=== PATIENT | female | born 1990 | race Two or more races ===

== ENCOUNTER 2025-04-14 18:25 | Emergency (ER) | payer MEDICAID, SELFPAY ==
[2025-04-14 18:33] VITALS: BP 112/71; PULSE 122; RESP 23; TEMP 37.1; O2SAT 99; BMI 26.0
--- NOTE | 2025-04-14 18:51 | PD.EDDENTL ---
ED Dental RME/HPI General Chief complaint: Dental/Oral/Throat Stated complaint: SORE THROAT W/BODYACHES Time Seen by Provider: 04/14/25 18:52 Arrival date/time: 04/14/25 18:25 RME / HPI RME / HPI Narrative: This section includes all my notes and documentations, including HPI, PE, and ED course. Cj Warren MD HPI: 34yo female with no significant past medical history presents to the ED for complaints of headache, sore throat, and intermittent fevers since yesterday. No cough, runny nose, nausea, vomiting or any other associated symptoms. She is not on any daily medications. No other complaints reported. ROS: All negative except as documented in HPI. Physical Exam: General: Alert and oriented. In obvious pain. Eyes: Conjunctivae and lids clear. ENT: No nasal congestion. Enlarged red tonsils bilaterally with exudate. Tympanic membranes normal bilaterally. Neck: Supple. Heart: RRR. Lungs: No respiratory distress. Good air movement. No rhonchi, wheezing, rales. Abdomen: Soft and nontender. Skin: Warm and dry. Neuro: Alert and oriented X 3. May clinical diagnosis of tonsillitis. Treatment here included Tylenol with Codeine, Augmentin, Ibuprofen, and Predisolone. Started to feel better. Recommended outpatient management. Based on my best medical judgment, made decision no further evaluation or treatment indicated at this time. Patient understands and agrees to the discharge instructions customized and printed, see below. Discharge instructions from Dr. Warren: -- Augmentin to kill the germs causing the tonsillitis. -- Prednisone to decrease the swelling in the throat. -- Ibuprofen 800 mg every 6-8 hours today and tomorrow to decrease inflammation then as needed. -- Tylenol with codeine for severe pain. -- Increase oral fluid. Our body needs extra when we are sick. Maintain clear urine. If dark or yellow, increase oral fluid. -- See a private doctor on 04/16/2025 for recheck and further care. Ask for help until you are completely better. -- Seek immediate medical care with worsening or with any concerns. Cj Warren MD Related Data Previous Rx's ?Medication ?Instructions ?Recorded acetaminophen 300 mg-codeine 30 mg 2 tab PO Q8H PRN pain #20 tabs 04/14/25 tablet amoxicillin 875 mg-potassium 1 tab PO BID #20 tabs 04/14/25 clavulanate 125 mg tablet ibuprofen 800 mg tablet 800 mg PO Q8H PRN pain #30 tabs 04/14/25 prednisone 20 mg tablet 20 mg PO BID 3 days #6 tabs 04/14/25 Allergies Allergy/AdvReac Type Severity Reaction Status Date / Time No Known Allergies Allergy Verified 04/14/25 18:27 Review of Systems Review of Systems Systems Reviewed: All systems reviewed, normal except as documented ED Exam Narrative Physical exam: As noted in HPI. Course Quality Measures none Orders Category Date Time Status ACETAMINOPHEN w/COD 300-30 [Tylenol w/Cod #3] Med 04/14/25 18:52 Discontinued 2 tab PO X1 ONE Amox/Pot 250 mg/62.5 mg/5 ml [Augmentin 250 MG/62.5 MG/ Med 04/14/25 18:52 Discontinued 5 ML] 500 mg PO X1 ONE Ibuprofen Susp [Motrin Susp] Med 04/14/25 18:52 Discontinued 400 mg PO X1 ONE prednisoLONE 15 mg/5 ml UDC [Prelone Liqd] Med 04/14/25 18:52 Discontinued 60 mg PO X1 ONE Vital Signs Vital signs: Vital Signs Temperature 98.7 F 04/14/25 18:33 Pulse Rate 122 H 04/14/25 18:33 Respiratory Rate 23 H 04/14/25 18:33 Blood Pressure 112/71 04/14/25 18:33 Pulse Oximetry (%) 99 04/14/25 18:33 Oxygen Delivery Method Room Air 04/14/25 18:33 Dental / Oral MDM Narrative MDM Narrative:: Scribe Attestation: 04/14/25 Erin Dixon am scribing for and in the presence of Dr. Warren. Patient data External records reviewed:: [facility] previous records (Per chart review, patient has no previous ED visits or admissions to this facility.) Clinical information provided by:: patient Social determinants that could affect healthcare access:: none Patient has the following chronic illnesses:: none How is presenting disease/condition affected by chronic disease/condition?: no chronic disease Evaluation data The following diagnostics were reviewed and interpreted by me:: other (specify) (none) Lab and/or radiology exams considered but not ordered:: none Interpretation Summary: none Medications / Prescriptions Medications or Prescriptions considered but not ordered:: none Medication administrations:: Medication Administration History Discontinued Medications Acetaminophen/Codeine Phosphate (Acetaminophen W/Cod 300-30 Tablet) 2 tab PO X1 ONE Stop: 04/14/25 18:53 Amoxicillin/Clavulanate Potassium (Amoxicillin/Pot Clav Susp 250 Mg/5 Ml Udc) 500 mg PO X1 ONE Stop: 04/14/25 18:53 Ibuprofen (Ibuprofen Susp 100 Mg/5 Ml Udc) 400 mg PO X1 ONE Stop: 04/14/25 18:53 Prednisolone Sodium Phosphate (Prednisolone Liqd 15 Mg/5 Ml Udc) 60 mg PO X1 ONE Stop: 04/14/25 18:53 Tylenol with Codeine, Augmentin, Ibuprofen, and Predisolone Consultations Consultation(s) initiated? (list below): No Diagnosis Dental Differential Diagnosis: gingival abscess, dental caries, toothache, dental abscess, fracture of tooth, aphthous ulcer and other (Tonsillitis) Most likely diagnosis given after review of the tests above:: Tonsillitis Admission Indicated Admission indicated?: not indicated Explain why admission is indicated or not indicated:: With no condition needing emergent intervention, there was no indication for admission. Admission Request Was there a request for admission?: No Disposition Plan Disposition Plan: Discharge Discharge Attestation Discharge Attestation: The patient and all family members were given an opportunity to ask questions and understood the discharge instructions. Discharge instructions specifically effects, indications for sooner follow up or return to the emergency department, and the expected course of current diagnosis. Patient condition: Stable Discharge Plan Plan Patient Disposition: HOME (Self Care) Prescriptions/Referrals Prescriptions/Med Rec: New ibuprofen 800 mg tablet 800 mg PO Q8H PRN (Reason: pain) Qty: 30 0RF prednisone 20 mg tablet 20 mg PO BID 3 Days Qty: 6 0RF Taper: Prednisone Taper 20 mg DAILY for 2 Days and 0 Hour 10 mg DAILY for 2 Days and 0 Hour 5 mg DAILY for 7 Days and 0 Hour acetaminophen-codeine 300-30 mg tablet 2 tab PO Q8H MDD 6 PRN (Reason: pain) Qty: 20 0RF amoxicillin-pot clavulanate 875-125 mg tablet 1 tab PO BID Qty: 20 0RF Problem List Clinical Impression: Tonsillitis Patient/Caregiver Discharge Instructions Discharge Activity: activity as tolerated Education Materials: ED Tonsillitis (Child) Additional Instructions: Discharge instructions from Dr. Warren: -- Augmentin to kill the germs causing the tonsillitis.? -- Prednisone to decrease the swelling in the throat. -- Ibuprofen 800 mg every 6-8 hours today and tomorrow to decrease inflammation then as needed. -- Tylenol with codeine for severe pain. -- Increase oral fluid.? Our body needs extra when we are sick.? Maintain clear urine.? If dark or yellow, increase oral fluid.?? -- See a private doctor on 04/16/2025 for recheck and further care. Ask for help until you are completely better. -- Seek immediate medical care with worsening or with any concerns. Print Language: Chinese Stand Alone Forms: Tamara Award Info., Patient Portal Info Letter
[2025-04-14] MEDS: prednisoLONE LIQD 15 MG/5 ML UDC 60 MG PO (19:08)
[2025-04-14] MEDS: ACETAMINOPHEN w/COD 300-30 TABLET 2 TAB PO (19:09)
[2025-04-14] MEDS: IBUPROFEN SUSP 100 MG/5 ML UDC 400 MG PO (19:09)
[2025-04-14] MEDS: AMOXICILLIN/POT CLAV SUSP 250 MG/5 ML UDC 500 MG PO (19:10)
== END 2025-04-15 01:07 | disposition home or self-care (01) ==
LOC: SERX 19:28
PROVIDERS: Emergency Provider Emergency Medicine
DX: J03.90 Acute tonsillitis, unspecified (principal)
CPT/HCPCS: 99282; J7510; A9270

== ENCOUNTER 2025-08-05 08:40 | Emergency (ER) | payer MEDICAID, SELFPAY ==
[2025-08-05 08:40] VITALS: BMI 33.0
--- NOTE | 2025-08-05 08:59 | XR_ITS ---
Examination: Pelvic ultrasound, transabdominal, complete Technique: Transabdominal ultrasound of the pelvis performed using grayscale imaging Date and time of exam: July 29 60120, 0919 hours INDICATIONS: Pelvic pain beginning 4 days ago FINDINGS: Uterus 7.4 cm intrauterine device satisfactory position No uterine mass Right ovary 3.3 cm arterial flow. Left ovary 3.6 cm arterial flow No fluid in the cul-de-sac IMPRESSION: No uterine mass or intrauterine gestation
--- NOTE | 2025-08-05 09:00 | PD.EDRME ---
Rapid Medical Screening Exam E Arrival date/time: 08/05/25 08:40 34-year-old female with no known medical history presents to the emergency room with a chief complaint of vaginal bleeding and pelvic pain x 2 days. Patient states she is currently on control. I have greeted and performed a focused initial assessment of this patient. A comprehensive ED assessment and evaluation of the patient, analysis of all test results, and completion of the medical decision making process will be conducted by additional ED providers. Chief Complaint: Abdominal Pain Vital signs reviewed by provider: Yes Exam: Soft nontender abdomen. Pelvic pain with palpation Clear bilateral lung sounds Clinical Impression: Ectopic /ovarian cyst/vaginal bleeding
[2025-08-05 09:09] VITALS: BP 112/68; PULSE 78; RESP 18; TEMP 36.9; O2SAT 99
[2025-08-05 09:59] LABS: Basophils # (Auto) 0.1 Thou/mm3 (0.0-0.2); Basophils % (Auto) 1 % (0-2.5); Eosinophils # (Auto) 0.1 Thou/mm3 (0.0-0.5); Eosinophils % (Auto) 1 % (0-10); Hematocrit 34.4 % (36.0-46.0); Hemoglobin 11.8 g/dL (12.0-16.0); Immature Granulocytes Auto 0.01 Thou/mm3 (0.00-0.00); Lymphocytes # (Auto) 2.1 Thou/mm3 (1.0-4.8); Lymphocytes % (Auto) 29 % (10-50); Mean Corpuscular HGB Conc 34.3 g/dl (31.0-37.0); Mean Corpuscular Hemoglobin 31.5 pg (25.0-35.0); Mean Corpuscular Volume 92 fL (80-100); Monocytes # (Auto) 0.6 Thou/mm3 (0.0-0.8); Monocytes % (Auto) 8 % (0-12); Neutrophils # (Auto) 4.3 Thou/mm3 (1.8-7.7); Neutrophils % (Auto) 60 % (37-80); Nucleated Red Blood Cell # 0.00 Thou/mm3 (0.00-0.00); Nucleated Red Blood Cell % 0 /100 WBC (0); Platelet Count 369 Thou/mm3 (140-440); RDW Standard Deviation 43.6 fL (36.4-46.3); Red Blood Count 3.75 Miln/mm3 (4.00-5.20); White Blood Count 7.2 Thou/mm3 (3.6-11.0)
[2025-08-05 10:05] LABS: Collection Type, Urine Clean Catch
[2025-08-05 10:07] LABS: HCG Qualitative,Urine Negative
[2025-08-05 10:20] LABS: Alanine Aminotransferase 16 U/L (10-49); Albumin, Serum 4.3 gm/dL (3.5-5.0); Albumin/Globulin Ratio 1.8 (1.2-2.2); Alkaline Phosphatase 61 U/L (46-116); Anion Gap 11 (7-16); Aspartate Amino Transferase 16 U/L (0-34); BUN/Creatinine Ratio 13 Ratio (12-20); Bilirubin,Total 0.5 mg/dL (0.3-1.2); Blood Urea Nitrogen 10 mg/dL (9-23); Calcium 8.9 mg/dL (8.3-10.6); Calcium (Corrected) 8.9 mg/dL (8.5-10.1); Carbon Dioxide 25.4 mMol/L (20.0-31.0); Chloride 108 mMol/L (98-107); Creatinine (Component) 0.8 mg/dL (0.6-1.3); Estimated Creatinine Clearance 96.3 mL/min (>60); Globulin 2.4 gm/dL (2.3-3.5); Glucose 100 mg/dL (74-106); Lipase 30 U/L (12-53); Osmolality,Calculated 285 (275-295); Potassium 3.8 mMol/L (3.4-5.1); Sodium 144 mMol/L (136-145); Total Protein 6.7 gm/dL (5.7-8.2); eGFR > 60 See Note
[2025-08-05 10:56] LABS: Bacteria,Urine 1+; Bilirubin,Urine Negative (Negative); Blood,Urine 3+ (Negative); Color,Urine Yellow (Lt Yel-Yel); Glucose, Urine Negative (Negative); Ketones,Urine Negative (Negative); Leukocyte Esterase,Urine Positive (Negative); Nitrite,Urine Positive (Negative); PH,Urine 6.0 (5.0-7.0); Protein,Urine 1+ (Neg - Trace); RBC,Urine 303 /hpf (0-3); Specific Gravity,Urine 1.026 (1.001-1.035); Squamous Epithelial Cell,Urine 16 /hpf (0-5); Urobilinogen,Urine Negative mg/dL (0.0-1.0); WBC,Urine 504 /hpf (0-5)
[2025-08-05 11:03] LABS: Clarity,Urine Hazy (Clear/Hazy)
--- NOTE | 2025-08-05 11:18 | EDNOTE_ITS ---
ED General RME/HPI General Chief complaint: Abdominal Pain Stated complaint: ABD PAIN FOR 4 DAYS Time Seen by Provider: 08/05/25 09:18 Arrival date/time: 08/05/25 08:40 CC: Vaginal bleeding low abdominal pain HPI patient states she only notices bleeding and pain when she urinates. Ongoing for the past 2 days. Denies nausea vomiting chest pain vaginal bleeding diarrhea or constipation. RME / HPI RME / HPI narrative: 08/05/25 08:40 34-year-old female with no known medical history presents to the emergency room with a chief complaint of vaginal bleeding and pelvic pain x 2 days. Patient states she is currently on control. I have greeted and performed a focused initial assessment of this patient. A comprehensive ED assessment and evaluation of the patient, analysis of all test results, and completion of the medical decision making process will be conducted by additional ED providers. Exam: Soft nontender abdomen. Pelvic pain with palpation Clear bilateral lung sounds Impression: Ectopic /ovarian cyst/vaginal bleeding Related Data Previous Rx's ?Medication ?Instructions ?Recorded acetaminophen 300 mg-codeine 30 mg 2 tab PO Q8H PRN pa in #20 tabs 04/14/25 tablet amoxicillin 875 mg-potassium 1 tab PO BID #20 tabs 04/03 clavulanate 125 mg tablet ibuprofen 800 mg tablet 800 mg PO Q8H PRN pain #30 t abs 04/14/25 ciprofloxacin HCl 500 mg tablet 500 mg PO BID #14 tabs 08/05/25 (Cipro) Allergies Allergy/AdvReac Type Severity Reaction Status Date / Time No Known Allergies Allergy Verified 08/05/25 08:42 Review of Systems Review of Systems Narrative Review of Systems: GEN: No fever, no chills, no weight loss EYES: No discharge, no visual changes, no pain HEENT: No ear pain, no congestion, no sore throat PULM: No shortness of breath, no cough, no congestion CV: No chest pain, no dyspnea on exertion, no palpitations GI: No nausea, no vomiting, no diarrhea, no pain, no constipation : No frequency, no urgency, no dysuria MUSC/SKEL: No joint pain, no back pain SKIN: No rash PSYCH: No hallucinations, no depression HEME/LYMPH: No easy bleeding or bruising tendencies NEURO: No weakness, no headache Course Course Course Narrative: Given the patient's clinical symptoms and laboratory results highly likely this is urinary tract infection we will start the patient on antibiotics. Quality Measures none Orders Category Date Time Status US pelvic complete Stat Exams 08/05/25 08:59 Completed CBC Stat Lab 08/05/25 09:42 Completed CMP [Comprehensive Metabolic Panel] Stat Lab 08/05/25 09:42 Completed HCG Qualitative,Urine Stat Lab 08/05/25 09:50 Completed Lipase Stat Lab 08/05/25 09:42 Completed UA [Urinalysis] Stat Lab 08/05/25 09:50 Completed Urine Culture Stat Lab 08/05/25 09:50 Received cefTRIAXone [Rocephin] 1,000 mg Med 08/05/25 11:27 Discontinued Lidocaine 1% 20 ml [Xylocaine 1% 20 ML] 2.1 ml IM X1 Vital Signs Vital signs: Vital Signs Temperature 98.5 F 08/05/25 09:09 Pulse Rate 78 08/05/25 09:09 Respiratory Rate 18 08/05/25 09:09 Blood Pressure 112/68 08/05/25 09:09 Pulse Oximetry (%) 99 08/05/25 09:09 Oxygen Delivery Method Room Air 08/05/25 09:09 Discharge Plan Plan Patient Disposition: HOME (Self Care) Patient condition on transfer: Stable Prescriptions/Referrals Prescriptions/Med Rec: New ciprofloxacin HCl [Cipro] 500 mg tablet 500 mg PO BID Qty: 14 0RF No Action ibuprofen 800 mg tablet 800 mg PO Q8H PRN (Reason: pain) Qty: 30 0RF acetaminophen-codeine 300-30 mg tablet 2 tab PO Q8H MDD 6 PRN (Reason: pain) Qty: 20 0RF amoxicillin-pot clavulanate 875-125 mg tablet 1 tab PO BID Qty: 20 0RF Referrals: Chevy Stoll MD [Physician, Family Practice] - In 1 week No Primary/Family,Physician [Primary Care Provider] - In 1 week Problem List Clinical Impression: Urinary tract infection Patient/Caregiver Discharge Instructions Other Activity Instructions:: Take the medications as prescribed until completely gone drink plenty of water. If there is a worsening of symptoms in spite of the medications return to the emergency room immediately for further evaluation. Education Materials: ED CYSTITIS Female Adult Print Language: Irish Stand Alone Forms: Tamara Award Info., Work/School Release, Patient Portal Info Letter PA/RAKE OPERATOR Supervising Physician ERIC/MALINDA Supervising Physician: Rey Salomon ENP [facility] Clinical Information Provided by: patient Medical Records reviewed [facility] Meds/Rx considered, not ordered None Labs/Rad/Tests considered, not ordered None Chronic Illness/Social Conditions which may negatively complicate care or outcome(s)-explain: None or not applicable EKG EKG not done Labs Labs: interpreted by me Lab(s) Interpretation(s): CBC shows no leukocytosis and H&H of 11.8 and 34.4 respectively platelets are unremarkable. CMP shows no significant electrolyte imbalances renal impairment transaminitis or T. bili elevation Urine shows 3+ blood RBCs at 303 WBCs of 504 leukocyte esterase and nitrite positive. 16 squamous epithelia 4+ bacteria Urine is negative. Imaging Imaging interpretation: interpreted by me Imaging Interpretation(s): Urine ultrasound is unremarkable. Medication Administration(s) Medication Administration History Discontinued Medications Ceftriaxone Sodium 1,000 mg/ (Lidocaine HCl 2.1 ml) 0 mg IM X1 ONE Stop: 08/05/25 11:28 Last Admin: 08/05/25 11:40 Dose: 1,000 mg Documented By: EHSAN
[2025-08-05 11:19] VITALS: BP 103/66; PULSE 60; RESP 18; TEMP 36.7; O2SAT 99
[2025-08-05] MEDS: cefTRIAXone 1,000 MG, LIDOCAINE 1% 20 ML 2.1 ML IM (11:40)
== END 2025-08-05 11:55 | disposition home or self-care (01) ==
PROVIDERS: Nurse Practitioner Family; Emergency Provider Family Medicine
DX: O00.90 Unspecified ectopic pregnancy without intrauterine pregnancy (principal); N30.90 Cystitis, unspecified without hematuria; O46.90 Antepartum hemorrhage, unspecified, unspecified trimester
CPT/HCPCS: 36415; 76856; 80053; 81001; 81025; 83690; 85025; 87077; 87086; 87186; 96372; 99283; J0696; J3490